=== PATIENT | male | born 1970 | race Caucasian/White ===

== ENCOUNTER 2020-03-15 00:44 | Emergency (ER) | payer SELFPAY ==
[~2020-03-15] VITALS: Ht 185.4 cm; Wt 126.0 kg
--- NOTE | 2020-03-15 00:49 | PHYS DOC ---
General Adult HPI: HPI: ".. I was cutting some pipe with blow torch.. and got a flash back.. the cinders and slag went over my protective glasses. .. up under.. into my Lt eye.. I tried to wash it out..but it is still brother to me..."." I know I got a burn but it feels like I still got some metal in there.." Patient is a 49 year old male who presents with above hx and complaints injury to left eye while cutting pipe with a torch at approximately 1600 hrs. yester day. Patient states he immediately tried to wash out the eye however feels like he still has a burn on the eyelid and foreign body in the left eye. Patient does have findings of slight burn to the left eyelid as well as a cluster embedded metal fragments at 3:00 in left eye. There is also some charred material at this location. Does have limbus injection at this location. Does have decreased visual acuity in left eye 20/50 . Patient is having excessive tearing in left eye .. Pt. did have some consensual photophobia. The patient has no obvious marked cell or flare. Did not appear that he had a puncture through the cornea. The fluorescein shows uptake and corneal abrasions.. There is some irritation under left upper eye lid. Patient is up-to-date with tetanus. No history immuno suppression. Has had previous similar injuries to the eye. No recent travel or specific ill contacts. No Covid risk. Review of Systems: Review of Systems: Constitutional: Denies fever or chills Eyes: Complains of irritation and burning in left eye-history of hot slag injury HENT: Denies nasal congestion or sore throat Respiratory: Denies cough or shortness of breath Cardiovascular: Denies chest pain or edema GI: Denies abdominal pain, nausea, vomiting, bloody stools or diarrhea : Denies dysuria Musculoskeletal: Denies back pain or joint pain Integument: Denies rash Neurologic: Denies headache, focal weakness or sensory changes Endocrine: Denies polyuria or polydipsia Lymphatic: Denies swollen glands Psychiatric: Denies depression or anxiety Family History: Family History: Noncontributory to presentation Current Medications: Current Meds: See nursing for home meds Allergies: Allergies: No known drug allergies Physical Exam: PE: Constitutional: Well developed, well nourished, in moderate acute distress, non- toxic appearance. [] HENT: Normocephalic, atraumatic, bilateral external ears normal, oropharynx moist, no oral exudates, nose normal. [] Eyes: Right eye conjunctiva normal, no discharge. [Except the findings in left eye as per HPI Neck: Normal range of motion, no tenderness, supple, no stridor. [] Cardiovascular:Heart rate regular rhythm, no murmur [] Lungs & Thorax: Bilateral breath sounds equal at apex on auscultation [] Abdomen: Bowel sounds normal, soft, no tenderness, no masses, no pulsatile masses. [] Skin: Warm, dry, no erythema, no rash. [] Back: No tenderness, no CVA tenderness. [] Extremities: No tenderness, no cyanosis, no clubbing, ROM intact, no edema. [] Neurologic: Alert and oriented X 3, normal motor function, normal sensory function, no focal deficits noted. [] Psychologic: Affect anxious, judgement normal, mood normal. [] EKG: EKG: [] Radiology/Procedures: Radiology/Procedures: [] Heart Score: Risk Factors: Risk Factors: DM, Current or recent (<one month) smoker, HTN, HLP, family history of CAD, obesity. Risk Scores: Score 0 - 3: 2.5% MACE over next 6 weeks - Discharge Home Score 4 - 6: 20.3% MACE over next 6 weeks - Admit for Clinical Observation Score 7 - 10: 72.7% MACE over next 6 weeks - Early Invasive Strategies Course & Med Decision Making: Course & Med Decision Making Pertinent Labs and Imaging studies reviewed. (See chart for details) Procedure note-r Use of slit-lamp. Removed several embedded metal fragments at 3:00 with needle and Q-tip. Did use bur to remove some of the foreign body staining. Patient however must follow-up with ophthalmology. Did place 2 drops of Cyclogyl in left eye for traumatic right iritis May use the Toradol eye drop 4 x a day for pain. Use very small amount of erythromycin ointment. You must see ophthalmology and have follow-up of this corneal burn and foreign body. It appears you do have some residual rust staining, Must avoid rubbing eye. May take Vicodin up to 4 times a day. This must be followed up. Patient given the names of Farhad Wiley and or Dr. Lazaro at [facility]. If increased pain, redness, or marked decrease vision must present to the emergency room that has an on-call [employer] solutions architect tonight. Patching offered however patient declined. Patient warned he will not have depth perception because of meds given tonight. Patient again encouraged not to rub his eye. Impression: 1. Left corneal Burn 2. Left corneal Metal foreign body [] Dragon Disclaimer: Dragon Disclaimer: This electronic medical record was generated, in whole or in part, using a voice recognition dictation system. Departure Departure: Referrals: PCP,UNKNOWN (PCP) Scripts Hydrocodone/Ibuprofen (HYDROCODONE-IBUPROFEN 7.5-200 ) 1 Each Tablet 1 TAB PO PRN Q6HRS PRN for PAIN, #30 TAB 0 Refills Prov: ANDREIA MARES MD 03/15/20 Belinda Disclaimer This chart was dictated in whole or in part using Voice Recognition software in a busy, high-work load, and often noisy Emergency Department environment. It may contain unintended and wholly unrecognized errors or omissions. Dragon Disclaimer This chart was dictated in whole or in part using Voice Recognition software in a busy, high-work load, and often noisy Emergency Department environment. It may contain unintended and wholly unrecognized errors or omissions. Dragon Disclaimer This chart was dictated in whole or in part using Voice Recognition software in a busy, high-work load, and often noisy Emergency Department environment. It may contain unintended and wholly unrecognized errors or omissions. ANDREIA MARES MD Mar 15, 2020 00:49
[2020-03-15] MEDS ORDERED: FLUORESCEIN 1MG EYE STRIP. OU ONE (01:00)
[2020-03-15] MEDS ORDERED: ERYTHROMYCIN 0.5% OPHTH OINTMENT 1GM TUBE. OS ONE ×2 (01:00→02:30)
[2020-03-15] MEDS ORDERED: TETRACAINE 0.5% OPHTH SOLUTION 4ML BOTTLE. OU ONE (01:00)
[2020-03-15] MEDS ORDERED: KETOROLAC TROMETHAMINE 0.5% OPHTH SOLUTION BOTTLE. OS ONE (01:00)
[2020-03-15] MEDS ORDERED: HYDROcodon/IBUPROFEN 7.5/200MG 1 TAB TABLET PO ONE (01:15)
[2020-03-15] MEDS ORDERED: CYCLOPENTOLATE 1% OPTH SOLUTION 2ML BOTTLE. OS ONE (01:30)
[2020-03-15] MEDS ORDERED: HYDR-1179 PO (02:07)
[2020-03-15 02:41] VITALS: BP 147/58
== END 2020-03-15 02:40 | disposition home or self-care (01) ==
LOC: ER 00:44
DX: T15.02XA Foreign body in cornea, left eye, initial encounter (principal); T26.12XA Burn of cornea and conjunctival sac, left eye, initial encounter; Y29.XXXA Contact with blunt object, undetermined intent, initial encounter; Y93.89 Activity, other specified; Y92.89 Other specified places as the place of occurrence of the external cause; Y99.8 Other external cause status
CPT/HCPCS: 65222; 99284